=== PATIENT | male | born 1935 | race Caucasian/White ===

== ENCOUNTER 2016-04-29 20:17 | Inpatient (IN) | payer MEDICARE, BC ==
--- NOTE | ~2016-04-29 | DS ---
Discharge Summary [facility] [address] [place]. [address] NAME: JEANNE MADDEN : 33 STATUS : DIS IN PAT#: [id number] AGE: 81 ADM/REG DATE : 04/29/16 MR#: [id number] REPORT SERV DATE: 05/11/16 DICTATED BY: RE MAY JR. DATE: 05/10/16 REPORT STATUS : Draft TRANSCRIBED BY: MIRA DATE: 05/10/16 Data Collection from hospitalization DISCHARGE DIAGNOSES: 1. Influenza A. 2. Elevated BMI - obesity. 3. Hypertension. 4. Diabetes mellitus. 5. History of paroxysmal atrial fibrillation/flutter. 6. History of sleep apnea. 7. Mixed hyperlipidemia. 8. Benign prostatic hypertrophy. 9. Former tobacco use. CONSULTATIONS: Melly Proctor NP PROCEDURES PERFORMED: None. DISCHARGE MEDICATIONS: Aspirin 81 mg at bedtime; Jantoven 5 mg on Sundays, Tuesdays, , and Saturdays as instructed; Proscar 5 mg at bedtime; Tresiba 40 units subcutaneously every morning; NovoLog injection insulin as instructed; Tamiflu 75 mg twice a day for two more days; Ditropan 5 mg at bedtime; Pravachol 40 mg at bedtime; Zoloft 50 mg at bedtime; Jantoven 6 mg on Mondays, Wednesdays, and Fridays; Victoza as instructed; Amaryl 2 mg every morning; Glucophage 500 mg every morning and 1000 mg at bedtime; stool softener one tablet at bedtime; Tylenol cold and flu 2 tablets twice a day as needed, Nitrostat 0.4 mg as needed. CONDITION AT DISCHARGE: Stable. DISPOSITION: The patient was discharged home to be followed by home health care on an 1800- calorie cardiac/diabetic diet with activities as instructed. He will follow up with Dr. Mine Thompson on 05/31/[address] Glynn Nova on 05/30/2016. He will follow up at the [facility] on 05/04/2016. HOSPITAL COURSE: This is an 81-year-old man who has ischemic heart disease and is status post coronary artery bypass grafting and stent implantation. He is status post aortic valve replacement. He felt poorly over the last couple of days prior to admission with increasing malaise, fatigue, and weakness. He had a cough and some pleuritic chest pain which prompted an emergency room presentation to [facility]. While he was there, he had an abnormal troponin of 0.09 and 0.28. His influenza A was positive. He was transferred here for care secondary to being his primary chalk tester. On arrival, he denied chest pain or shortness of breath. He did have malaise and fatigue. He said he had some intermittent low level chest discomfort over the past couple of days that was more associated with coughing. He denied any prior anginal-like chest pain. He was admitted to the hospital at this time for further evaluation and treatment. Upon admission, influenza A was positive. INR level was 1.4. He was felt to have an abnormal troponin which was most likely a type 2 event secondary to influenza. Heparin and Discharge Summary [address] [place]. [address] NAME: JEANNE MADDEN : 33 STATUS : DIS IN PAT#: [id number] AGE: 81 ADM/REG DATE : 04/29/16 MR#: [id number] REPORT SERV DATE: 05/11/16 DICTATED BY: RE MAY JR. DATE: 05/10/16 REPORT STATUS : Draft TRANSCRIBED BY: MIRA DATE: 05/10/16 aspirin were continued for now. We will follow serial enzymes and EKGs. Warfarin was held for now. INR level was subtherapeutic at 1.4. He was on heparin weight-based protocol. Sliding scale insulin was going to begin. He was seen by Melly Hall regarding flu and diabetes management. The patient has been a diabetic since 1996, and currently on multiple medications to control his diabetes. He does not have an cellophane worker, and he uses his chalk tester as his primary care physician. He was unsure of his most recent hemoglobin A1c. He reports that he has been checking his blood sugars at home twice a day which would ranged from the 70s to the 200. He also reports a history of a diagnosis of obstructive sleep apnea, but denied home oxygen or home CPAP, and denies that he has obstructive sleep apnea. He reports using home oxygen for approximately 2 to 3 months saying that it never really helped. Tamiflu was continued as well as supportive care. O2 would be provided as needed to maintain saturations. Hemoglobin A1c was going to be checked. We were going to continue his home long-acting insulin which was Toujeo and continue on sliding scale insulin. Victoza will be added once the pharmacy was able to confirm his dose. The patient does not use home O2. Bronchodilator protocol on oxygen would be added as needed. Zoloft was continued for his depression. The following day, his shortness of breath had decreased. He had no chest pain. He said he was feeling better. White count was 3.2. Chest x-ray was okay. Warfarin was going to be resumed. On the , the shortness of breath decreased, he was ambulatory. Hemoglobin A1c was 8.8. He was to receive outpatient followup for pancytopenia. His shortness breath was unchanged. He had some gait ataxia. The next day, discharge planning was performed. He said he felt stronger, he was up sitting in a chair. He still had some wheezing, but he was off O2 at the present time. The patient is not compliant with his CPAP. He was evaluated by Physical Therapy. On 05/03/2016, he was alert and cooperative. He had no chest pain. Tamiflu was continued. Discharge instructions were given. Due to his improved and stable condition, he was discharged home to be followed by home health care with the above-stated instructions. Information collected by: Poonam Patiño I submit the above information as my discharge summary. TG/MODL Re May Jr., M.D. / [id number] CC: Manuel Monique Jr., M.D.
--- NOTE | ~2016-04-29 | CN ---
Consultation Report [facility] [address] [place]. [address] NAME: JEANNE MADDEN : 33 STATUS : ADM IN PAT#: [id number] AGE: 81 ADM/REG DATE : 04/29/16 MR#: [id number] REPORT SERV DATE: 04/30/16 DICTATED BY: MELLY PROCTOR DATE: 04/30/16 REPORT STATUS : Draft TRANSCRIBED BY: MODL DATE: 04/30/16 DATE OF CONSULTATION: 04/29/2016 REASON FOR CONSULTATION: Flu and diabetes management per Dr. May. HISTORY OF PRESENT ILLNESS: This is an awake, alert, and oriented pleasant 81-year-old, male, who was admitted to Dr. May today for abnormal troponin levels. He originally presented to [facility] with complaints of cough condition, fever, rhinorrhea, headache, and weakness. He was found to be positive for flu A and was also found to have elevated troponins at that time. He reports his symptoms of cough, congestion, and weakness, have been ongoing for approximately one month and worsened with activity. The patient was given a dose of Tamiflu at [facility] and reports improvement in those symptoms at this time. He has been diabetic since 1996 and is currently on multiple medications to control his diabetes. He does not have an sales recruitment specialist and uses his roofing technician as his PCP. He is unsure of his most recent hemoglobin A1c. The patient reports checking his blood sugars at home twice daily which ranges from 70s to 200s. He also reports a history of a diagnosis of obstructive sleep apnea, but denies using home oxygen or home CPAP and denies that he has obstructive sleep apnea. He reports he using home oxygen for approximately two to three months stating "it never really helped." He currently denies all symptoms including chest pain, palpitations, dyspnea, shortness of breath, chills, myalgia, sore throat, abdominal pain, nausea, vomiting, diarrhea, headache, rhinorrhea, congestion, and cough. PAST MEDICAL HISTORY: Significant for: 1. Insulin-dependent diabetes mellitus type 2. 2. Hypertension. 3. High cholesterol. 4. Ischemic heart disease. 5. Atrial fibrillation/flutter. 6. Obstructive sleep apnea. 7. BPH. PAST SURGICAL HISTORY: Significant for: 1. CABG x2, 2011. 2. Cardiac stent, 2015. 3. Pacemaker. The patient follows with [facility] per Cardiology, Dr. Thompson, whom he uses as a PCP. SOCIAL HISTORY: The patient lives alone and is independent of all ADLs. He is a former smoker having smoked one pack per day of cigarettes for approximately 15 years. He quit smoking cigarettes 20 years ago. He denies alcohol or illicit drug use. He has two daughters who live nearby and is estranged from one of them. Consultation Report [address] [place]. [address] NAME: JEANNE MADDEN : 33 STATUS : ADM IN PAT#: [id number] AGE: 81 ADM/REG DATE : 04/29/16 MR#: [id number] REPORT SERV DATE: 04/30/16 DICTATED BY: MELLY PROCTOR DATE: 04/30/16 REPORT STATUS : Draft TRANSCRIBED BY: MIRA DATE: 04/30/16 FAMILY HISTORY: Mother had an unknown cancer. Father of a heart attack. ALLERGIES: NO KNOWN ALLERGIES. HOME MEDICATIONS: Include: 1. Aspirin 81 mg p.o. every bedtime. 2. Proscar 5 mg p.o. every bedtime. 3. Amaryl 10 mg p.o. every morning. 4. NovoLog subcutaneous by sliding scale. 5. Toujeo 40 units subcutaneous every morning. 6. Glucophage 1000 mg p.o. every bedtime. 7. Glucophage 500 mg p.o. every morning. 8. Nitrostat 0.4 mg p.o. p.r.n. chest pain. 9. Ditropan XL 5 mg p.o. every bedtime. 10.Pravachol 40 mg p.o. every bedtime. 11.Zoloft 50 mg p.o. every bedtime. 12.Victoza, unknown dose to be verified by pharmacy. 13.Stool softener, 1 p.o. every bedtime. 14.Tylenol cold and flu two tabs p.o. twice a day p.r.n. flu symptoms. 15.Warfarin 5.5 mg p.o. on Monday, Monday, , and Monday. 16.Warfarin 6 mg p.o. Monday, Monday, and Monday. REVIEW OF SYSTEMS: A complete 10-point review of systems was negative except as per HPI. PHYSICAL EXAMINATION: VITAL SIGNS: T 94.3, P 84, RR 18, BP 134/75, SpO2 92% on room air. GENERAL: Well-appearing male, in no acute distress. NEUROLOGIC: Awake, alert, oriented x3 without focal deficit. HEENT: Normocephalic, atraumatic without lymphadenopathy. NECK: Supple. No JVD. LUNGS: CTA in all lung bravo with normal respiratory effort. Diminished in bilateral bases. CV: Regular rate and rhythm. S1-S2 auscultated. ABDOMEN: Soft, round, nontender. Bowel sounds are active in all quadrants. No masses. EXTREMITIES: No cyanosis or edema. Cap refill within normal limits. PSYCH: Normal affect. SKIN: Clean, dry, and intact with mucous membranes pink and moist. PERTINENT LABORATORIES: At [facility], the patient was positive for flu A. WBC was 5.2, lactate 0.9. Serum venous CO2 was 28. BUN and creatinine were 22/0.8. Potassium was 4.2, sodium 140, chloride 98. Fingerstick blood glucose prior to transfer was 236. Strep test at [facility] was negative. Consultation Report [facility] [id number] [facility] [place]. [address] NAME: JEANNE MADDEN : 33 STATUS : ADM IN [facility]#: [id number] AGE: 81 ADM/REG DATE : 04/29/16 MR#: [id number] REPORT SERV DATE: 04/30/16 DICTATED BY: MELLY PROCTOR DATE: 04/30/16 REPORT STATUS : Draft TRANSCRIBED BY: MODL DATE: 04/30/16 PERTINENT IMAGING: At [facility], chest x-ray showed no acute process by Radiology read. 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 ASSESSMENT AND PLAN: 1. Flu. This is acute and confirmed at [facility] Room where he got his first dose of Tamiflu. We will continue the Tamiflu, as well as supportive care. We will monitor his labs, continue droplet precaution, and provide O2 as needed to maintain sats. 2. Type 2 insulin-dependent diabetes mellitus. This is chronic with an unknown last hemoglobin A1c and reports of home blood glucose being 70s to 200s. We will get an A1c with his a.m. labs to monitor progress. We will also continue his home p.o. medications at this time. We will also continue his home long-acting insulin which is Toujeo and continue the current sliding scale insulin ordered by Dr. May on admit. We will add Victoza when pharmacy is able to confirm his dose. We will also monitor his labs and has a hematology nurse educator to speak with the patient to help better control this condition. 3. Obstructive sleep apnea. This is chronic. The patient does not use home O2. We will monitor his vital signs and provide supportive care, especially in light of respiratory illness. We will add bronchodilator protocol and oxygen as needed. 4. Depression. This is chronic. Dr. May continued his Zoloft and we will monitor labs and follow with the primary team for this. 5. High cholesterol. This is chronic. We will continue with current medications, monitor labs, and follow with the primary team. 6. Ischemic heart disease. This is chronic. He is also post coronary artery bypass graft in 2011. We will defer to the primary team for management of this, as well as the abnormal troponin levels. Thank you for this consult. We are pleased to follow this patient with you. This consult was completed through thorough [facility], current [facility] and through thorough interview with the patient. H/MODL Melly Proctor NP / [id number] CC: Camacho May Jr., M.D.
--- NOTE | ~2016-04-29 | HP ---
History And Physical [facility] [address] [place]. [address] NAME: JEANNE ZEPEDA : 33 STATUS : ADM IN [facility]#: [id number] AGE: 81 ADM/REG DATE : 04/29/16 MR#: [id number] REPORT SERV DATE: 04/29/16 DICTATED BY: RE MAY JR. DATE: 04/29/16 REPORT STATUS : Draft TRANSCRIBED BY: MODL DATE: 04/29/16 DATE OF ADMISSION: 04/29/2016 HISTORY OF PRESENT ILLNESS: Mr. Zepeda is an 81-year-old white male who has ischemic heart disease, status post CABG and stent implantation, status post aortic valve replacement. He has felt poorly for the last couple of days with increasing malaise, fatigue, and weakness. He has had a cough with some pleuritic chest pain prompting ER presentation to [facility]. While there, the patient had abnormal troponin of 0.09 and 0.28. He is influenza A positive. He was transferred here for care secondary to us being his primary principal technical specialist. On arrival, the patient denies chest pain or shortness of breath. He has malaise and fatigue. He states he has had some intermittent low level chest discomfort over the last couple of days more associated with coughing than not. He denies prior angina-like chest pain. PAST MEDICAL HISTORY: Includes CABG with AVR in 2011. He had a stent to the vein graft to the obtuse marginal in 12/2014. He has paroxysmal atrial fibrillation and flutter. He has a history of sleep apnea without CPAP usage. He is hypertensive with mixed hyperlipidemia, type 2 diabetes. He has BPH. He suffers from obesity. ALLERGIES: NONE. CURRENT MEDICATIONS: Please see the home medication sheet, which was reviewed. SOCIAL HISTORY: He does not currently smoke, abuse alcohol, or use recreational drugs. FAMILY HISTORY: Negative for premature vascular events. REVIEW OF SYSTEMS: Include malaise, fatigue, subjective fevers, cough. He denies bleeding diathesis. He denies sudden weight gain or weight loss. He has some increase in lower extremity edema. The remainder as in HPI or negative. PHYSICAL EXAMINATION: VITAL SIGNS: Blood pressure is 143/75, heart rate 90, respirations 16. GENERAL: Obese male who is in no acute distress but appears ill. HEENT: Anicteric, no scleral injection, no oral lesions. NECK: No JVD, supple, no bruits. LUNGS: Moderate air movement with few rhonchi. CARDIOVASCULAR: Regular rate and rhythm with 2/6 systolic ejection murmur at the right upper sternal border. ABDOMEN: Soft, nontender. Normoactive bowel sounds, no hepatosplenomegaly. EXTREMITIES: Trace to 1+ peripheral edema. SKIN: No visible rashes. NEURO/PSY: Normal affect, alert and oriented x 3. LABORATORY DATA: Troponin 0.2. TSH is 1.94. Influenza A is positive. Potassium is 4.2, History And Physical [facility] [address] [place]. [address] NAME: JEANNE ZEPEDA : 33 STATUS : ADM IN [facility]#: [id number] AGE: 81 ADM/REG DATE : 04/29/16 MR#: [id number] REPORT SERV DATE: 04/29/16 DICTATED BY: RE MAY JR. DATE: 04/29/16 REPORT STATUS : Draft TRANSCRIBED BY: MODL DATE: 04/29/16 creatinine 0.8, and glucose is 236. White count is 5.2, hematocrit is 40, and platelets are 105. INR is 1.4. MEDICAL DECISION MAKIN. Influenza. We will have a hospitalist consult and continue supportive care. 2. Abnormal troponin. This is most likely a type 2 event secondary to influenza. We will continue heparin and aspirin for now. We will follow serial enzymes and EKGs. 3. Atrial fibrillation/flutter. We are holding warfarin for now. His INR was subtherapeutic at 1.4. He was on a heparin weight based protocol. 4. Diabetes. We will place on a sliding scale insulin with medicine consultation. VSM/MODL Re May Jr., M.D. / [id number] CC: Re May Jr., M.D. UNKNOWN Manuel Lyn M.D.
[~2016-04-29 20:17] MED LIST: AMARYL4 PO; AMB10 PO; ASAB PO; BUSPAR5 PO; COREG12 PO; FAMILY TO BRING; FERROUS SULF325 M1 PO; FLEX PO; FLOMAX0.4 M1 OR; FLOMAX4 PO; GLUCOV1.25 PO; GLUCOV5 PO; GLUCPH PO; HALF81 PO; IRON PO; JANTOVEN1 MG PO; JANTOVEN4 MG PO; LANTUS SC; LANTUSCART SC; LORTAB 5 PO; MULTIPLE VIT PO; NEUR100 PO; NOVOLOG SC; PLAVIX PO; PRAVAC PO; PRIN10 PO; PRIN5 PO; PROSCAR5 PO; SEROQUEL25 PO; STOOL SOFTEN100 MG PO; VICTOZA18 MG/3 ML SC; ZOCOR20 PO; ZOL100 PO; ZOL50 PO
[2016-04-29] MEDS ORDERED: TRESIBA FL100 UNIT/1 SC (20:44)
[2016-04-29] MEDS ORDERED: VICTOZA (20:48)
[2016-04-29] MEDS ORDERED: AMARYL4 PO (20:49)
[2016-04-29] MEDS ORDERED: DITROPAN XL10 MG PO (20:50)
[2016-04-29] MEDS ORDERED: GLUCOPHAGE1000 MG PO (20:50)
[2016-04-29] MEDS ORDERED: GLUCPH PO (20:50)
[2016-04-29] MEDS ORDERED: PROSCAR5 PO (20:51)
[2016-04-29] MEDS ORDERED: PRAVACHOL40 MG PO (20:51)
[2016-04-29] MEDS ORDERED: ZOL50 PO (20:51)
[2016-04-29] MEDS ORDERED: ASAB PO (20:52)
[2016-04-29] MEDS ORDERED: JANTOVEN6 MG PO (20:53)
[2016-04-29] MEDS ORDERED: JANTOVEN1 MG PO (20:54)
[2016-04-29] MEDS ORDERED: TYLENOL COLD/FLU PO (20:54)
[2016-04-29] MEDS ORDERED: NOVOPEN SC (20:55)
[2016-04-29] MEDS ORDERED: NITROSTAT0.4 MG PO (20:56)
[2016-04-29 21:38] LABS: BASOPHILS 0.2 %; BASOPHILS ABSOLUTE 0.01 10/3/uL (0.0-0.16); EOSINOPHILS 0 %; HEMATOCRIT 37.9 % (40.0-51.0); HEMOGLOBIN 12.1 g/dL (13.6-17.8); IMMATURE GRANULOCYTES 0.7 %; IMMATURE GRANULOCYTES ABSOLUTE 0.03 10/3/uL (0.0-0.11); LYMPHOCYTES 12.6 %; LYMPHOCYTES ABSOLUTE 0.53 10/3/uL (0.67-4.30); MANUAL DIFF NO %; MEAN CORPUS HGB CONC 31.9 g/dL (32.0-36.0); MEAN CORPUSCULAR HEMOGLOB 28.4 pg (26.0-34.0); MEAN PLATELET VOLUME 11.3 fL (9.2-13.0); MONOCYTES ABSOLUTE 0.63 10/3/uL (0.21-1.20); NEUTROPHILS 71.5 %; NEUTROPHILS ABSOLUTE 2.99 10/3/uL (2.02-8.40); PLATELET COUNT 103 10/3/uL (150-400); RED CELL COUNT 4.26 10/6/uL (4.7-6.1); WHITE BLOOD CELLS 4.2 10/3/uL (4.5-10.5)
[2016-04-29 21:47] LABS: INTERNATIONAL NORMAL RATI 1.5 UNITS (-); PARTIAL THROMBO TIME 43.5 SEC (22.5-37.2); PROTIME (NOT ORD) 17.5 SEC (12.0-14.5)
[2016-04-29 21:58] LABS: CPK 392 U/L (0-200)
[2016-04-29 21:59] LABS: CK-MB 2.3 NG/ML
[2016-04-30 05:25] LABS: INTERNATIONAL NORMAL RATI 1.4 UNITS (-); PROTIME (NOT ORD) 17.3 SEC (12.0-14.5)
[2016-04-30 05:29] LABS: BASOPHILS 0.3 %; BASOPHILS ABSOLUTE 0.01 10/3/uL (0.0-0.16); EOSINOPHILS 0 %; HEMATOCRIT 35.6 % (40.0-51.0); HEMOGLOBIN 11.3 g/dL (13.6-17.8); IMMATURE GRANULOCYTES 0.3 %; IMMATURE GRANULOCYTES ABSOLUTE 0.01 10/3/uL (0.0-0.11); LYMPHOCYTES ABSOLUTE 0.83 10/3/uL (0.67-4.30); MEAN CORPUS HGB CONC 31.7 g/dL (32.0-36.0); MEAN CORPUSCULAR HEMOGLOB 28.5 pg (26.0-34.0); MEAN CORPUSCULAR VOLUME 89.7 fL (80-100); MEAN PLATELET VOLUME 11.4 fL (9.2-13.0); MONOCYTES 19.7 %; MONOCYTES ABSOLUTE 0.63 10/3/uL (0.21-1.20); NEUTROPHILS 53.7 %; NEUTROPHILS ABSOLUTE 1.71 10/3/uL (2.02-8.40); PLATELET COUNT 106 10/3/uL (150-400); RED CELL COUNT 3.97 10/6/uL (4.7-6.1); WHITE BLOOD CELLS 3.2 10/3/uL (4.5-10.5)
[2016-04-30 05:32] LABS: MANUAL DIFF NO %
[2016-04-30 06:06] LABS: BUN (BLOOD UREA NITROGEN) 19 MG/DL (6-23); CALCIUM, SERUM 8.4 MG/DL (8.5-10.4); CHLORIDE, SERUM 103 MMOL/L (96-112); CO2 (CARBON DIOXIDE) 27 MMOL/L (24-34); CPK 363 U/L (0-200); CREATININE 0.74 MG/DL (0.70-1.30); GFR AFRICAN AMERICAN 99 ML/MIN (>=60); GFR NON AFRICAN AMERICAN 85 ML/MIN (>=60); GLUCOSE, SERUM 185 MG/DL (60-99); POTASSIUM, SERUM 3.4 MMOL/L (3.5-5.3); SODIUM, SERUM 139 MMOL/L (135-148)
[2016-04-30 06:07] LABS: CK-MB 2.2 NG/ML; TROPONIN I 0.43 NG/ML (<0.05)
[2016-05-01 01:41] LABS: BASOPHILS 0 %; EOSINOPHILS 0 %; HEMATOCRIT 35.8 % (40.0-51.0); HEMOGLOBIN 11.7 g/dL (13.6-17.8); IMMATURE GRANULOCYTES 0.6 %; IMMATURE GRANULOCYTES ABSOLUTE 0.02 10/3/uL (0.0-0.11); LYMPHOCYTES 17.1 %; LYMPHOCYTES ABSOLUTE 0.55 10/3/uL (0.67-4.30); MEAN CORPUS HGB CONC 32.7 g/dL (32.0-36.0); MEAN CORPUSCULAR HEMOGLOB 29.3 pg (26.0-34.0); MEAN CORPUSCULAR VOLUME 89.7 fL (80-100); MEAN PLATELET VOLUME 10.8 fL (9.2-13.0); MONOCYTES ABSOLUTE 0.32 10/3/uL (0.21-1.20); NEUTROPHILS 72.3 %; NEUTROPHILS ABSOLUTE 2.32 10/3/uL (2.02-8.40); PLATELET COUNT 101 10/3/uL (150-400); RBC DISTRIBUTION WIDTH 13.7 % (12.0-16.0); RED CELL COUNT 3.99 10/6/uL (4.7-6.1); WHITE BLOOD CELLS 3.2 10/3/uL (4.5-10.5)
[2016-05-01 01:43] LABS: MANUAL DIFF NO %
[2016-05-01 01:46] LABS: BUN (BLOOD UREA NITROGEN) 20 MG/DL (6-23); CALCIUM, SERUM 8.3 MG/DL (8.5-10.4); CHLORIDE, SERUM 102 MMOL/L (96-112); CO2 (CARBON DIOXIDE) 23 MMOL/L (24-34); CREATININE 0.85 MG/DL (0.70-1.30); GFR AFRICAN AMERICAN 93 ML/MIN (>=60); GFR NON AFRICAN AMERICAN 81 ML/MIN (>=60); POTASSIUM, SERUM 3.7 MMOL/L (3.5-5.3); SODIUM, SERUM 136 MMOL/L (135-148)
[2016-05-01 01:49] LABS: GLUCOSE, SERUM 287 MG/DL (60-99)
[2016-05-01 01:51] LABS: INTERNATIONAL NORMAL RATI 1.3 UNITS (-); PARTIAL THROMBO TIME 61.7 SEC (22.5-37.2); PROTIME (NOT ORD) 15.9 SEC (12.0-14.5)
[2016-05-02 05:36] LABS: INTERNATIONAL NORMAL RATI 1.4 UNITS (-); PROTIME (NOT ORD) 17.2 SEC (12.0-14.5)
[2016-05-02 05:53] LABS: BUN (BLOOD UREA NITROGEN) 18 MG/DL (6-23); CALCIUM, SERUM 8.6 MG/DL (8.5-10.4); CHLORIDE, SERUM 105 MMOL/L (96-112); CREATININE 0.72 MG/DL (0.70-1.30); GFR AFRICAN AMERICAN 100 ML/MIN (>=60); GFR NON AFRICAN AMERICAN 86 ML/MIN (>=60); POTASSIUM, SERUM 3.9 MMOL/L (3.5-5.3); SODIUM, SERUM 141 MMOL/L (135-148)
[2016-05-02 05:59] LABS: CO2 (CARBON DIOXIDE) 28 MMOL/L (24-34); GLUCOSE, SERUM 149 MG/DL (60-99)
[2016-05-03 05:19] LABS: INTERNATIONAL NORMAL RATI 1.7 UNITS (-); PROTIME (NOT ORD) 19.9 SEC (12.0-14.5)
[2016-05-03] MEDS ORDERED: TAMIFLU PO (15:28)
[2016-09-23] MEDS ORDERED: VICTOZA18 MG/3 ML SC (13:35)
[2016-09-23] MEDS ORDERED: FLOMAX4 PO (13:45)
[2016-09-23] MEDS ORDERED: CENTRUM PO (13:46)
[2016-09-23] MEDS ORDERED: STOOL SOFTENER OTC PO (13:46)
[2016-09-23] MEDS ORDERED: FERROUS SULF325 M1 PO (13:46)
== END 2016-05-03 16:16 | disposition home health service (06) | DRG 194 ==
LOC: 5NO 20:17
PROVIDERS: Internal Medicine Cardiovascular Disease
DX: J10.1 Influenza due to other identified influenza virus with other respiratory manifestations (principal); I48.92 Unspecified atrial flutter; D61.818 Other pancytopenia; I24.8 Other forms of acute ischemic heart disease; E11.9 Type 2 diabetes mellitus without complications; I48.91 Unspecified atrial fibrillation; Z95.1 Presence of aortocoronary bypass graft; Z95.5 Presence of coronary angioplasty implant and graft; Z95.2 Presence of prosthetic heart valve; I10 Essential (primary) hypertension; E78.2 Mixed hyperlipidemia; Z95.0 Presence of cardiac pacemaker; Z87.891 Personal history of nicotine dependence; Z79.4 Long term (current) use of insulin; G47.33 Obstructive sleep apnea (adult) (pediatric); F32.9 Major depressive disorder, single episode, unspecified; I25.9 Chronic ischemic heart disease, unspecified
CPT/HCPCS: 71020; 80048; 82550; 82553; 82962; 83036; 84484; 85025; 85610; 85730; 93005; 94640; 97162-GP; A9270-GY; G8978-CI-GP; G8979-CI-GP; G8980-CI-GP; J1940; J2920